=== PATIENT | female | born 1955 | race Two or more races ===

== ENCOUNTER → 2017-08-30 | Outpatient (CLI) | payer OTHER | END | disposition home or self-care (01) | LOC: RAD 501 09:38 | DX: M41.20 Other idiopathic scoliosis, site unspecified (principal) ==

== ENCOUNTER 2018-01-24 07:53 | Outpatient (CLI) | payer OTHER | END 2018-01-24 07:59 | disposition home or self-care (01) | LOC: SONOGRAMA 07:53 | DX: E04.1 Nontoxic single thyroid nodule (principal) ==

== ENCOUNTER 2018-09-24 11:43 | Outpatient (CLI) | payer OTHER | END 2018-09-24 17:12 | disposition home or self-care (01) | LOC: SONOGRAMA 11:43 | DX: E04.1 Nontoxic single thyroid nodule (principal) ==

== ENCOUNTER 2018-10-05 08:25 | Outpatient (CLI) | payer OTHER | END 2018-10-05 08:31 | disposition home or self-care (01) | LOC: RAD 08:25 | DX: M54.5 Low back pain (principal) ==

== ENCOUNTER 2018-10-11 08:09 | Outpatient (CLI) | payer OTHER | END 2018-10-11 10:00 | disposition home or self-care (01) | LOC: NUCLEAR 08:09 | DX: M54.5 Low back pain (principal) | CPT/HCPCS: 78315; A9503 ==

== ENCOUNTER 2019-03-13 10:05 | Outpatient (CLI) | payer OTHER | END 2019-03-13 17:00 | disposition home or self-care (01) | LOC: SONOGRAMA 10:05 | DX: E04.1 Nontoxic single thyroid nodule (principal) ==

== ENCOUNTER → 2021-04-20 | Outpatient (CLI) | payer OTHER | END | disposition home or self-care (01) | LOC: SONOGRAMA 11:56 → MAMO-SONO 14:15 | PROVIDERS: ATTEND Internal Medicine Cardiovascular Disease | DX: E04.1 Nontoxic single thyroid nodule (principal); E03.8 Other specified hypothyroidism ==

== ENCOUNTER 2021-06-03 10:54 | Outpatient (CLI) | payer OTHER | END 2021-06-03 10:57 | disposition home or self-care (01) | LOC: RAD 10:54 | PROVIDERS: ATTEND Internal Medicine Rheumatology | DX: M15.0 Primary generalized (osteo)arthritis (principal); M05.79 Rheumatoid arthritis with rheumatoid factor of multiple sites without organ or systems involvement; M70.61 Trochanteric bursitis, right hip; M70.62 Trochanteric bursitis, left hip ==

== ENCOUNTER 2021-06-15 13:23 | Outpatient (CLI) | payer OTHER | END 2021-06-15 13:33 | disposition home or self-care (01) | LOC: RAD 13:23 | PROVIDERS: ATTEND Physical Medicine & Rehabilitation | DX: M79.672 Pain in left foot (principal) ==

== ENCOUNTER 2021-09-02 12:41 | Outpatient (CLI) | payer OTHER | END 2021-09-02 12:45 | disposition home or self-care (01) | LOC: TOM 12:41 | PROVIDERS: ATTEND Internal Medicine Pulmonary Disease | DX: R06.02 Shortness of breath (principal); J45.30 Mild persistent asthma, uncomplicated; U07.1 COVID-19 ==

== ENCOUNTER 2021-11-10 08:18 | Outpatient (CLI) | payer OTHER | END 2021-11-10 08:22 | disposition home or self-care (01) | LOC: RAD 08:18 | PROVIDERS: ATTEND Internal Medicine Cardiovascular Disease | DX: M12.9 Arthropathy, unspecified (principal) ==

== ENCOUNTER 2022-03-24 10:12 | Outpatient (CLI) | payer OTHER | END 2022-03-24 10:15 | disposition home or self-care (01) | LOC: RAD 10:12 | PROVIDERS: ATTEND Internal Medicine Rheumatology | DX: M15.0 Primary generalized (osteo)arthritis (principal); M05.19 Rheumatoid lung disease with rheumatoid arthritis of multiple sites ==

== ENCOUNTER → 2022-10-07 | Outpatient (CLI) | payer OTHER | END | disposition home or self-care (01) | LOC: SONOGRAMA 07:42 | PROVIDERS: ATTEND Internal Medicine Cardiovascular Disease | DX: R10.9 Unspecified abdominal pain (principal) ==

== ENCOUNTER 2023-06-29 10:14 | Outpatient (CLI) | payer OTHER | END 2023-06-29 10:20 | disposition home or self-care (01) | LOC: SONOGRAMA 10:14 | PROVIDERS: ATTEND Internal Medicine Rheumatology | DX: M75.121 Complete rotator cuff tear or rupture of right shoulder, not specified as traumatic (principal); M75.122 Complete rotator cuff tear or rupture of left shoulder, not specified as traumatic ==

== ENCOUNTER 2023-09-27 13:20 | Outpatient (CLI) | payer OTHER | END 2023-09-27 13:25 | disposition home or self-care (01) | LOC: RAD 13:20 | PROVIDERS: ATTEND Physical Medicine & Rehabilitation | DX: M25.559 Pain in unspecified hip (principal) ==

== ENCOUNTER 2024-06-07 07:54 | Outpatient (CLI) | payer OTHER | END 2024-06-07 07:57 | disposition home or self-care (01) | LOC: SONOGRAMA 07:54 | PROVIDERS: ATTEND Internal Medicine | DX: R10.13 Epigastric pain (principal); R11.0 Nausea ==

== ENCOUNTER → 2024-07-19 | Outpatient (CLI) | payer OTHER | END | disposition home or self-care (01) | LOC: RAD 16:25 | PROVIDERS: ATTEND Physical Medicine & Rehabilitation | DX: M25.522 Pain in left elbow (principal); M25.552 Pain in left hip; M94.0 Chondrocostal junction syndrome [Tietze] ==

== ENCOUNTER 2024-09-04 09:27 | Outpatient (CLI) | payer OTHER | END 2024-09-04 09:36 | disposition home or self-care (01) | LOC: RAD 09:27 | PROVIDERS: ATTEND Physical Medicine & Rehabilitation | DX: M75.31 Calcific tendinitis of right shoulder (principal); M75.32 Calcific tendinitis of left shoulder; M75.111 Incomplete rotator cuff tear or rupture of right shoulder, not specified as traumatic; M75.112 Incomplete rotator cuff tear or rupture of left shoulder, not specified as traumatic; M75.51 Bursitis of right shoulder; M75.52 Bursitis of left shoulder ==

== ENCOUNTER 2024-10-23 08:21 | Outpatient (CLI) | payer OTHER | END 2024-10-23 08:25 | disposition home or self-care (01) | LOC: RAD 08:21 | PROVIDERS: ATTEND Physical Medicine & Rehabilitation | DX: M16.0 Bilateral primary osteoarthritis of hip (principal); M51.379 Other intervertebral disc degeneration, lumbosacral region without mention of lumbar back pain or lower extremity pain; M47.817 Spondylosis without myelopathy or radiculopathy, lumbosacral region; M51.27 Other intervertebral disc displacement, lumbosacral region; M54.17 Radiculopathy, lumbosacral region ==

== ENCOUNTER 2025-07-03 09:55 | Outpatient (CLI) | payer OTHER | END 2025-07-03 09:58 | disposition home or self-care (01) | LOC: RAD 09:55 | PROVIDERS: ATTEND Internal Medicine Rheumatology | DX: M15.0 Primary generalized (osteo)arthritis (principal); M25.551 Pain in right hip; M25.552 Pain in left hip; M54.12 Radiculopathy, cervical region ==